=== PATIENT | female | born 2000 | race Caucasian/White ===

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

== ENCOUNTER 2021-06-15 19:43 | Observation (INO) | payer OTHER ==
[2021-06-15] MEDS ORDERED: DUONEB 0.5-3 MG/3 ml Neb IH ONE ×2 (19:59→20:12)
[2021-06-15] MEDS ORDERED: DECADRON 10MG INJ. IV ONE (20:02)
[2021-06-15] MEDS ORDERED: DECADRON 10MG INJ. ONE (20:08)
--- NOTE | 2021-06-15 20:10 | ERPHSYRPT ---
- History of Present Illness Time Seen by Provider: 06/15/21 21:10 Source: patient Physician History: Patient is a 21-year-old female Covid positive presents to our ED via EMS for evaluation of shortness of breath. Patient states she has been coughing more than normal. She has been experiencing subjective fevers vomiting and diarrhea. She has diffuse body aches and feels fatigue. Slight headache as well. Patient symptoms are constant. Patient states she was laying down at home when her shortness of breath became more apparent to her. Patient became concerned and called 911. Patient was nauseous in route. She received Zofran per EMS. Patient was observed to be hypoxic. She is not in acute distress however. Symptoms are moderate in intensity. No specific worsening or improving factors. No history of PE DVT. No chest pain. No vomiting. Patient is otherwise healthy. She voices no other complaints concerns at this time. Timing/Duration: today Activities at Onset: rest Severity of Dyspnea-Max: moderate Severity of Dyspnea-Current: mild Possible Cause: no prior episodes (Patient symptoms are likely due to Covid.) Modifying Factors: Improves With: albuterol nebulizer (Patient received albuterol in our ED and feels much better.) Associated Symptoms: cough, fever, No lightheadedness, No painful breathing Allergies/Adverse Reactions: latex Allergy (Mild, Verified 06/15/21 19:58) Hives nickel Allergy (Mild, Verified 06/15/21 19:58) Blisters zinc Allergy (Mild, Verified 06/15/21 19:58) Nausea and Vomiting ELADIL Allergy (Mild, Uncoded 06/15/21 19:58) Hives Home Medications: Albuterol Sulfate [Proair Hfa] 8.5 gm DAILY 07/01/14 [History] Loratadine 10 mg [Claritin 10 mg] 10 mg DAILY 07/01/14 [History] Melatonin/Pyridoxine HCl (B6) [Melatonin 3 mg Tablet] 1 each PO HS 03/25/17 [History] Sertraline HCl [Zoloft] 25 mg PO DAILY 03/25/17 [History] Fluticasone/Salmeterol [Advair 250-50 Diskus] 1 ea BID 10/11/17 [History] norethindrone-e.estradioL-iron [Rehkgw-Op-Gv 1-0.02(21)-75 Tab] 1 ea DAILY 10/11/17 [History] Amoxicillin 500 mg PO TID 06/15/21 [History] Hx Tetanus, Diphtheria Vaccination/Date Given: Yes Hx Influenza Vaccination/Date Given: Yes Hx Pneumococcal Vaccination/Date Given: No - Review of Systems Constitutional: No Symptoms, No Fever, No Chills Eyes: No Symptoms Ears, Nose, & Throat: No Symptoms Respiratory: No Symptoms, No Cough, No Dyspnea Cardiac: No Symptoms, No Chest Pain, No Edema, No Syncope Abdominal/Gastrointestinal: No Symptoms, No Abdominal Pain, No Nausea, No Vomiting, No Diarrhea Genitourinary Symptoms: No Symptoms, No Dysuria Musculoskeletal: No Symptoms, No Back Pain, No Neck Pain Skin: No Symptoms, No Rash Neurological: No Symptoms, No Dizziness, No Focal Weakness, No Sensory Changes Psychological: No Symptoms Endocrine: No Symptoms Hematologic/Lymphatic: No Symptoms Immunological/Allergic: No Symptoms All Other Systems: Reviewed and Negative - Past Medical History Pertinent Past Medical History: Yes Neurological History: No Pertinent History, Other ENT History: No Pertinent History Cardiac History: Hypertension Respiratory History: Asthma Endocrine Medical History: No Pertinent History Musculoskeletal History: Fractures GI Medical History: No Pertinent History History: No Pertinent History Psycho-Social History: Anxiety, Attention Deficit Disorder, Other Female Reproductive Disorders: No Pertinent History Other Medical History: Tourette's, Anxiety, Depression, OCD, ADHD, ADD, Acid R eflux - Past Surgical History Past Surgical History: Yes Neuro Surgical History: No Pertinent History Cardiac: No Pertinent History Respiratory: No Pertinent History Gastrointestinal: No Pertinent History Genitourinary: No Pertinent History Musculoskeletal: No Pertinent History Female Surgical History: No Pertinent History Other Surgical History: TONSILS - Social History Smoking Status: Never smoker Exposure to second hand smoke: Yes Drug Use: none Patient Lives Alone: No Significant Family History: no pertinent family hx - Female History Hx Now: No - Nursing Vital Signs Nursing Vital Signs: Initial Vital Signs Temperature 99.2 F 06/15/21 20:01 Pulse Rate 92 H 06/15/21 20:01 Respiratory Rate 24 06/15/21 20:01 Blood Pressure 132/84 06/15/21 20:01 O2 Sat by Pulse Oximetry 95 06/15/21 20:01 Pain Scale Pain Intensity 0 - Physical Exam General Appearance: no apparent distress, alert Eye Exam: PERRL/EOMI Neck Exam: normal inspection, supple Cardiovascular/Chest Exam: normal heart sounds, regular rate/rhythm Abdominal/Gastrointestinal Exam: soft, No tenderness, No distention, No mass Extremity Exam: non-tender, normal range of motion, normal inspection, no calf tenderness, no pedal edema Neurologic Exam: alert, oriented x 3, cooperative, program production specialist II-XII nml as tested, sensation nml, No motor deficits Skin Exam: normal color, warm, No dry SpO2 Interpretation: hypoxic SpO2: 95 O2 Delivery: Nasal Cannula - Course Nursing assessment & vital signs reviewed: Yes EKG Interpreted by Me: RATE (102), Sinus Rhythm, Sinus Tach, NORMAL AXIS, NORMAL INTERVALS Ordered Tests: Active Orders 24 hr Category Date Time Status Manager Assisted Living STAT Care 06/15/21 20:00 Active EKG-ER Only STAT Care 06/15/21 19:59 Active IV Insertion STAT Care 06/15/21 19:59 Active Pulse Oximetry (ED) STAT Care 06/15/21 19:59 Active CHEST 1 VIEW (PORTABLE) Stat Exams 06/15/21 20:00 Taken BLOOD CULTURE Stat Lab 06/15/21 20:00 Received CBC W DIFF Stat Lab 06/15/21 19:55 Completed CMP Stat Lab 06/15/21 21:00 Completed D-DIMER QUANTITATIVE Stat Lab 06/15/21 19:55 Completed MAGNESIUM Stat Lab 06/15/21 19:55 Completed TROPONIN Q3H Lab 06/15/21 19:55 Completed TROPONIN Q3H Lab 06/15/21 23:00 Ordered TROPONIN Q3H Lab 06/16/21 02:00 Ordered TROPONIN Q3H Lab 06/16/21 05:00 Ordered TROPONIN Q3H Lab 06/16/21 08:00 Ordered UA W/RFX UR CULTURE Stat Lab 06/15/21 20:28 Completed Respiratory Therapy Assessment DAILY RT 06/15/21 20:23 Completed Transfer Order Routine Transfer 06/15/21 Ordered Medication Summary Generic Name Dose Route Start Last Admin Trade Name Freq PRN Reason Stop Dose Admin Sodium Chloride 1,000 mls @ 100 mls/hr 06/15/21 20:00 06/15/21 20:12 Sodium Chloride 0.9% 1000 Ml IV 07/15/21 19:59 100 mls/hr .Q10H AISHA Administration Discontinued Medications Generic Name Dose Route Start Last Admin Trade Name Freq PRN Reason Stop Dose Admin Albuterol/Ipratropium 3 ml 06/15/21 19:59 06/15/21 20:22 Duoneb 0.5-3 Mg/3 Ml Neb IH 06/15/21 20:00 3 ml STAT ONE Administration Albuterol/Ipratropium Confirm 06/15/21 20:12 Duoneb 0.5-3 Mg/3 Ml Neb Administered 06/15/21 20:13 Dose 3 ml IH .STK-MED ONE Dexamethasone Sodium Phosphate 8 mg 06/15/21 20:02 06/15/21 20:13 Decadron 10mg Inj. IV 06/15/21 20:03 8 mg STAT ONE Administration Dexamethasone Sodium Phosphate Confirm 06/15/21 20:08 Decadron 10mg Inj. Administered 06/15/21 20:09 Dose 10 mg .ROUTE .STK-MED ONE Lab/Rad Data: Laboratory Result Diagrams 06/15/21 19:55 06/15/21 21:00 Laboratory Results 06/15/21 06/15/21 06/15/21 Range/Units 21:00 20:28 19:55 WBC (4.0-10.5) K/mm3 RBC (4.1-5.4) M/mm3 Hgb (12.0-16.0) gm/dl Hct (35-47) % MCV (78-100) fl MCH (26-32) pg MCHC (32-36) g/dl RDW (11.5-14.0) % Plt Count (150-450) K/mm3 MPV (7.5-11.0) fl Gran % (36.0-66.0) % Eos # (Auto) (0-0.5) Absolute Lymphs (auto) (1.0-4.6) Absolute Monos (auto) (0.0-1.3) Lymphocytes % (24.0-44.0) % Monocytes % (0.0-12.0) % Eosinophils % (0.00-5.0) % Basophils % (0.0-0.4) % Absolute Granulocytes (1.4-6.9) Basophils # (0-0.4) D-Dimer (215-500) ng/mL Sodium 137 (137-145) mmol/L Potassium 4.0 (3.5-5.1) mmol/L Chloride 99 (98-107) mmol/L Carbon Dioxide 25 (22-30) mmol/L Anion Gap 16.5 H (5-15) MEQ/L BUN 11 (7-17) mg/dL Creatinine 0.78 (0.52-1.04) mg/dL Estimated GFR > 60.0 ML/MIN Glucose 92 (74-106) mg/dL Calcium 9.0 (8.4-10.2) mg/dL Magnesium (1.6-2.3) mg/dL Total Bilirubin 0.60 (0.2-1.3) mg/dL AST 58 H (14-36) U/L ALT 37 H (0-35) U/L Alkaline Phosphatase 73 (38-126) U/L Troponin I < 0.012 (0.000-0.034) ng/mL Serum Total Protein 7.5 (6.3-8.2) g/dL Albumin 4.2 (3.5-5.0) g/dL Urine Color YELLOW (YELLOW) Urine Appearance SLIGHTLY CLOUDY (CLEAR) Urine pH 6.0 (5-6) Ur Specific Fleming 1.020 (1.005-1.025) Urine Protein 30 (Negative) Urine Ketones NEGATIVE (NEGATIVE) Urine Blood NEGATIVE (0-5) Jose Luis/ul Urine Nitrite NEGATIVE (NEGATIVE) Urine Bilirubin NEGATIVE (NEGATIVE) Urine Urobilinogen 4 (0-1) mg/dL Ur Leukocyte Esterase NEGATIVE (NEGATIVE) Urine WBC (Auto) 0-2 (0-5) /HPF Urine RBC (Auto) NONE (0-2) /HPF U Epithel Cells (Auto) RARE (FEW) /HPF Urine Bacteria (Auto) NONE (NEGATIVE) /HPF Urine Mucus (Auto) SLIGHT (NEGATIVE) /HPF Urine Culture Reflexed NO (NO) Urine Glucose NEGATIVE (NEGATIVE) mg/dL 06/15/21 06/15/21 06/15/21 Range/Units 19:55 19:55 19:55 WBC 3.3 L (4.0-10.5) K/mm3 RBC 5.19 (4.1-5.4) M/mm3 Hgb 14.8 (12.0-16.0) gm/dl Hct 45.7 (35-47) % MCV 88.1 (78-100) fl MCH 28.5 (26-32) pg MCHC 32.4 (32-36) g/dl RDW 12.9 (11.5-14.0) % Plt Count 131 L (150-450) K/mm3 MPV 11.8 H (7.5-11.0) fl Gran % 66.2 H (36.0-66.0) % Eos # (Auto) 0 (0-0.5) Absolute Lymphs (auto) 0.81 L (1.0-4.6) Absolute Monos (auto) 0.29 (0.0-1.3) Lymphocytes % 24.7 (24.0-44.0) % Monocytes % 8.8 (0.0-12.0) % Eosinophils % 0.0 (0.00-5.0) % Basophils % 0.3 (0.0-0.4) % Absolute Granulocytes 2.17 (1.4-6.9) Basophils # 0.01 (0-0.4) D-Dimer 485 (215-500) ng/mL Sodium (137-145) mmol/L Potassium (3.5-5.1) mmol/L Chloride (98-107) mmol/L Carbon Dioxide (22-30) mmol/L Anion Gap (5-15) MEQ/L BUN (7-17) mg/dL Creatinine (0.52-1.04) mg/dL Estimated GFR ML/MIN Glucose (74-106) mg/dL Calcium (8.4-10.2) mg/dL Magnesium 1.6 (1.6-2.3) mg/dL Total Bilirubin (0.2-1.3) mg/dL AST (14-36) U/L ALT (0-35) U/L Alkaline Phosphatase (38-126) U/L Troponin I (0.000-0.034) ng/mL Serum Total Protein (6.3-8.2) g/dL Albumin (3.5-5.0) g/dL Urine Color (YELLOW) Urine Appearance (CLEAR) Urine pH (5-6) Ur Specific Fleming (1.005-1.025) Urine Protein (Negative) Urine Ketones (NEGATIVE) Urine Blood (0-5) Jose Luis/ul Urine Nitrite (NEGATIVE) Urine Bilirubin (NEGATIVE) Urine Urobilinogen (0-1) mg/dL Ur Leukocyte Esterase (NEGATIVE) Urine WBC (Auto) (0-5) /HPF Urine RBC (Auto) (0-2) /HPF U Epithel Cells (Auto) (FEW) /HPF Urine Bacteria (Auto) (NEGATIVE) /HPF Urine Mucus (Auto) (NEGATIVE) /HPF Urine Culture Reflexed (NO) Urine Glucose (NEGATIVE) mg/dL - Progress Progress: improved Air Movement: good Progress Note: Patient reassessed. She feels much better. Patient currently on 2 L nasal cannula. Oxygenation is 92%. We will increase her oxygenation to 4 L. And monitor her oxygenation at that point. Patient is known Covid positive. Chest x-ray reveals Covid pneumonia. No indication for antibiotics at this time. D- dimer negative. Troponin negative. Patient received albuterol breathing treatment and feels improved. Decadron administered. In light of patient's hypoxia we will admit for further evaluation and treatment. Case discussed with Dr. Gonzalez who accepts admission to observation. Plan of care discussed with patient. She agrees to admission at [facility] for further evaluation and treatment. She voices no other complaints concerns at this time. Admit orders completed. 06/15/21 23:52 Blood Culture(s) Obtained: Yes Antibiotics given: No Discussed with Dr.: Other (Case discussed with Dr. Gonzalez who accepts admission to observation.) Will see patient in: hospital (observation) Counseled pt/family regarding: lab results, diagnosis, rad results - Departure Departure Disposition: Observation Clinical Impression: COVID-19, Hypoxia, Pneumonia due to COVID-19 virus Condition: Stable Critical Care Time: No Referrals: ARELY NUNN NP [Primary Care Provider] -
[2021-06-15] MEDS: Sodium Chloride 0.9% 1000 ML 1,000 ML IV SCH (20:12)
[2021-06-15 20:25] LABS: Appearance SLIGHTLY CLOUDY (CLEAR); Bilirubin NEGATIVE (NEGATIVE); Blood NEGATIVE Ery/ul (0-5); Epithelial Cells RARE /HPF (FEW); Glucose NEGATIVE (NEGATIVE); Ketones NEGATIVE (NEGATIVE); Leukocyte Esterase NEGATIVE (NEGATIVE); Mucus SLIGHT /HPF (NEGATIVE); Nitrite NEGATIVE (NEGATIVE); Protein,Urine Dip 30 (Negative); Urobilinogen 4 mg/dL (0-1); WBC 0-2 /HPF (0-5)
[2021-06-15 21:15] LABS: Absolute Neutrophil Ct (ANC) 2.17 (1.4-6.9); BASOPHIL % 0.3 % (0.0-0.4); Basophil (Absolute #) 0.01 (0-0.4); Eosinophil (Absolute #) 0 (0-0.5); Hematocrit 45.7 % (35-47); Hemoglobin 14.8 gm/dl (12.0-16.0); Lymphocyte (Absolute #) 0.81 (1.0-4.6); Lymphocytes % 24.7 % (24.0-44.0); Mean Cell Volume 88.1 fl (78-100); Mean Corpuscular Hemoglobin 28.5 pg (26-32); Mean Corpuscular Hgb Concent. 32.4 g/dl (32-36); Mean Platelet Volume 11.8 fl (7.5-11.0); Monocyte (Absolute #) 0.29 (0.0-1.3); Monocytes % 8.8 % (0.0-12.0); Neutrophil % 66.2 % (36.0-66.0); Platelet Count 131 K/mm3 (150-450); Red Blood Count 5.19 M/mm3 (4.1-5.4); Red Cell Distribution Width 12.9 % (11.5-14.0); White Blood Count 3.3 K/mm3 (4.0-10.5)
[2021-06-15 22:00] LABS: ALBUMIN 4.2 g/dL (3.5-5.0); ALKALINE PHOSPHATASE 73 U/L (38-126); ANION GAP 16.5 MEQ/L (5-15); BLOOD UREA NITROGEN 11 mg/dL (7-17); CHLORIDE 99 mmol/L (98-107); Carbon Dioxide 25 mmol/L (22-30); Creatinine 1 0.78 mg/dL (0.52-1.04); EST GLOMERULAR FILTRATION RATE > 60.0 ML/MIN; Glucose 92 mg/dL (74-106); SGOT/AST 58 U/L (14-36); SGPT/ALT 37 U/L (0-35); SODIUM 137 mmol/L (137-145); Total Protein 7.5 g/dL (6.3-8.2)
[2021-06-16] MEDS ORDERED: Zofran 4 MG/2 ML VIAL IV PRN (00:26)
[2021-06-16] MEDS ORDERED: VENTOLIN COMMON CANISTER IH PRN (00:26)
[2021-06-16] MEDS ORDERED: MORPHINE SULFATE 4 MG INJ IV PRN (00:26)
[2021-06-16] MEDS ORDERED: TYLENOL 325 MG PO PRN (00:26)
[2021-06-16] MEDS ORDERED: REMDESIVIR 200 MG in Sodium Chloride 0.9% 250 ML 250 ML IV ONE (01:22)
[2021-06-16] MEDS ORDERED: ZOLOFT 50 MG TABLET PO SCH (01:22)
[2021-06-16] MEDS ORDERED: REMDESIVIR IV ONE (01:29)
[2021-06-16] MEDS ORDERED: Sodium Chloride 0.9% 250 ML 250 ML IV ONE (01:29)
[2021-06-16] MEDS: Sodium Chloride 0.9% 1000 ML 1,000 ML IV SCH (04:56)
[2021-06-16 05:48] LABS: Absolute Neutrophil Ct (ANC) 1.47 (1.4-6.9); Basophil (Absolute #) 0 (0-0.4); Eosinophil (Absolute #) 0 (0-0.5); Hematocrit 45.9 % (35-47); Lymphocyte (Absolute #) 0.74 (1.0-4.6); Lymphocytes % 31.2 % (24.0-44.0); Mean Cell Volume 87.1 fl (78-100); Mean Corpuscular Hemoglobin 28.5 pg (26-32); Mean Corpuscular Hgb Concent. 32.7 g/dl (32-36); Mean Platelet Volume 12.2 fl (7.5-11.0); Monocyte (Absolute #) 0.16 (0.0-1.3); Monocytes % 6.8 % (0.0-12.0); Platelet Count 145 K/mm3 (150-450); Red Blood Count 5.27 M/mm3 (4.1-5.4); Red Cell Distribution Width 12.8 % (11.5-14.0); White Blood Count 2.4 K/mm3 (4.0-10.5)
[2021-06-16 06:40] LABS: ALBUMIN 4.2 g/dL (3.5-5.0); ALKALINE PHOSPHATASE 70 U/L (38-126); ANION GAP 16.2 MEQ/L (5-15); BLOOD UREA NITROGEN 10 mg/dL (7-17); CHLORIDE 103 mmol/L (98-107); Calcium 8.9 mg/dL (8.4-10.2); Carbon Dioxide 25 mmol/L (22-30); Creatinine 1 0.71 mg/dL (0.52-1.04); EST GLOMERULAR FILTRATION RATE > 60.0 ML/MIN; Glucose 141 mg/dL (74-106); Potassium 4.3 mmol/L (3.5-5.1); SGOT/AST 54 U/L (14-36); SGPT/ALT 37 U/L (0-35); SODIUM 140 mmol/L (137-145); Total Protein 7.6 g/dL (6.3-8.2)
[2021-06-16] MEDS ORDERED: Advair Hfa 115/21 Common canister IH SCH (07:00)
[2021-06-16 07:51] VITALS: BP 134/74
[2021-06-16] MEDS ORDERED: ADVAIR/WIXELLA 250-50 DISKUS 14 DOSE IH SCH (08:00)
[2021-06-16 08:17] VITALS: PULSE 77
--- NOTE | 2021-06-16 08:47 | XRAY ---
Indication: Short of breath. Positive Covid 19. Comparison: January 22, 2010. Portable chest demonstrates new diffuse bilateral airspace disease greatest in both lung bases. Heart not enlarged. Bony thorax intact.
[2021-06-16] MEDS ORDERED: DECADRON 10MG INJ. IV SCH (10:00)
[2021-06-16] MEDS ORDERED: ENOXAPARIN SODIUM SQ SCH (10:00)
[2021-06-16 10:24] VITALS: O2SAT 92
[2021-06-16] MEDS ORDERED: Decadron 4 MG INJ IV SCH (20:00)
[2021-06-16] MEDS ORDERED: REMDESIVIR 100 MG in Sodium Chloride 0.9% 100 ML BAG 100 ML IV SCH (22:00)
--- NOTE | 2021-06-17 10:55 | HP ---
CHIEF COMPLAINT: Can't breathe, nausea, vomiting. HISTORY OF PRESENT ILLNESS: The patient was admitted to the Emergency Room with the following complaints for 2 days. She states she was coughing. By the time I saw her the next morning at 10:00 AM, said all her symptoms had gone away. She wasn't nauseated. She ate breakfast. She said she was not short of breath, although she had 4 liters on and she was not coughing. She is a nonsmoker with no history of lung disease. She is only 21 years old. She doesn't know where she got the COVID-19. HOME MEDICATIONS: ProAir q 4 PRN, loratadine 10 q d, melatonin 2 mg HS, Advair 250/50 bid, control pills, amoxicillin 500 recently probably for this upper respiratory tract infection which I advised her does not work. ALLERGIES: MILD TO LATEX, NICKEL, ZINC, AND ELADIL. REVIEW OF SYSTEMS: HEENT: Has itchy eyes, runny nose. CHEST: Cough has gone away since last night. CVS: No exertional chest pain, palpitations, or rheumatic fever. ABDOMEN: Was nauseated, but has not vomited any. No diarrhea. Has been feeling good since the first shot of Zofran last night. ENDOCRINE: No problems. ILLNESSES: Mild hypertension, mild asthma, anxiety, attention deficit disorder, Tourette syndrome, ADHD, acid reflux, OCD. PAST SURGICAL HISTORY: Says she had a tonsillectomy. SOCIAL HISTORY: Never smoked. She lives with her grandmother and mother I believe in [place]. CURRENT MEDICATIONS: Albuterol, ipratropium, DuoNeb 1 bid, control pills, Advair HFA 250/50 1 puff q d, amoxicillin 500 tid for an ear infection, loratadine 10 q d, melatonin 3 HS, Prilosec 30 q d, Zoloft 25 q d for depression. PHYSICAL EXAMINATION: The patient is very appropriate and nice 21 y/o female who is in no distress this morning. HEENT: Pupils equal and reactive to light. NECK: Supple without adenopathy. CHEST: Clear. CVS: No murmurs or gallops. ABDOMEN: Soft, no masses or organomegaly. EXTREMITIES: Normal. She is 98% on 4 liters. We cut it down to 2 to get a reading there. She has ate her breakfast with no nausea or vomiting. Her lab work was normal except for COVID-19 test being positive. She was treated with Remdesivir 200, Lovenox, and Decadron. PLAN: She will be discharged home to her family on Prednisone 40 X 3, 20 X 3. To be isolated for 10 days. Prognosis good. To return if she becomes short of breath.
== END 2021-06-16 12:03 | disposition home or self-care (01) ==
LOC: ED 19:43 → MED SURG 06-16 00:24
PROVIDERS: ADMIT Family Medicine; ATTEND Family Medicine
DX: U07.1 COVID-19 (principal); J12.82 Pneumonia due to coronavirus disease 2019; R51.9 Headache, unspecified; R53.83 Other fatigue; R11.2 Nausea with vomiting, unspecified; R19.7 Diarrhea, unspecified; R09.02 Hypoxemia; Z79.899 Other long term (current) drug therapy; I10 Essential (primary) hypertension; J45.909 Unspecified asthma, uncomplicated; F41.9 Anxiety disorder, unspecified; F95.2 Tourette's disorder; F90.9 Attention-deficit hyperactivity disorder, unspecified type; F42.9 Obsessive-compulsive disorder, unspecified
CPT/HCPCS: 36000; 36415; 71045; 80053; 81001; 83735; 84484; 85025; 85379; 87040; 93005; 93041; 93268; 94640; 94760; 94762; 96374; 99285; G0378; J1100; J1650; A9270-GY